=== PATIENT | female | born 1935 | race Caucasian/White ===

== ENCOUNTER 2019-06-22 10:36 | Emergency (ER) | payer MEDICARE, OTHER ==
[~2019-06-22] VITALS: Ht 165.1 cm; Wt 81.8 kg
--- NOTE | 2019-06-22 10:54 | ED Head Injury ---
General Stated Complaint: FALL; HEAD INJ Source: patient, other (friend) History of Present Illness Date Seen by Provider: Jun 22, 2019 Time Seen by Provider: 10:41 Initial Comments 84-year-old female presenting with friend after having a fall at 6:30 AM today. She had tripped over her flip flops and fell face forward hitting her forehead. She denies having loss of consciousness. She does have injury to her right forehead that was bleeding. The bleeding is controlled at this time. She denies having headache or any change in her vision. She has no nausea or vomiting. She denies any other injuries. She has no pain in her neck or back. Allergies and Home Medications Allergies Coded Allergies: No Known Drug Allergies (Unverified , 06/22/19) Patient Home Medication List Home Medication List Reviewed: Yes Review of Systems Review of Systems Constitutional: no symptoms reported Eyes: Denies Blurred Vision, Denies Drainage, Denies Decreased Acuity, Denies Photophobia, Denies Vision Changes Ears, Nose, Mouth, Throat: see HPI; denies ear discharge, denies nose discharge, denies epistaxis, denies loose teeth Respiratory: no symptoms reported Cardiovascular: no symptoms reported Gastrointestinal: No nausea, No vomiting Genitourinary: No dysuria Musculoskeletal: no symptoms reported Skin: see HPI (bruising and swelling to right side of face with laceration to right forehead) Psychiatric/Neurological: See HPI (No loss of consciousness); Denies Headache Past Gfwppbi-Rmiweq-Sepkwv Hx Past Med/Social Hx: Reviewed Nursing Past Med/Soc Hx Patient Social History Recent Foreign Travel: No Physical Exam Vital Signs Vital Signs - First Documented 06/22/19 10:45 Temp 36.1 Pulse 78 Resp 16 B/P (MAP) 148/84 (105) Pulse Ox 95 Capillary Refill : Height, Weight, BMI Height: '" Weight: lbs. oz. kg; BMI Method: General Appearance: WD/WN, no apparent distress HEENT: PERRL/EOMI, TMs normal (no hemotympanum), pharynx normal; No photophobia; other (contusion with laceration to right side of face and forehea d) Neck: non-tender, supple Cardiovascular: normal peripheral pulses, regular rate, rhythm Respiratory: chest non-tender, lungs clear, normal breath sounds Gastrointestinal: non tender, soft, no pulsatile mass Extremities: normal range of motion, non-tender, normal capillary refill Psychiatric: alert, oriented x 3 Crainal Nerves: normal speech, PERRL Coordination/Gait: normal gait Skin: warm/dry, ecchymosis (right side of face), other (laceration to right forehead) Procedures/Interventions Wound Location: Face (right forehead) Wound Length (cm): 2.7 Wound's Depth, Shape: sub Q Wound Explored: clean Anesthesia: Lidocaine w/ Epi Volume Anesthetic (ccs): 9 Suture: Prolene Suture Size: 5-0 Number of Sutures: 7 Layer Closure?: 1 Progress After obtaining verbal consent the wound was anesthetized with 1% lidocaine with epinephrine. Then the central portion of the wound was debrided to remove the majority of the blood clot that was present. This was cleaned with chlorhexidine and sterile saline. Then 5-0 Prolene was used to approximate the wound edges with a total of 7 simple interrupted stitches. The patient tolerated this well without any immediate complications. Wound was dressed with antibiotic ointment. Counseled on follow-up and return precautions. Advised to have the stitches rem carlos in approximately 5-7 days. Progress/Results/Core Measures Results/Orders My Orders Orders - DARRIAN ASIF MD Ct Head Wo (06/22/19 10:52) Lidocaine/Epi Mpf 2% 1:200,000 (Xylocain (06/22/19 12:40) Suture Set At Bedside (06/22/19 12:40) Lidocaine/Epi 2% 1:100,000 (Xylocaine/Ep (06/22/19 12:45) Lidocaine/Epi 2% 1:100,000 (Xylocaine/Ep (06/22/19 12:43) Vital Signs/I&O 06/22/19 13:38 Pulse 74 Resp 14 B/P (MAP) 138/57 Pulse Ox 96 Progress Progress Note #1: Progress Note Obtain CT of the head to evaluate for intracranial hemorrhage or fracture. Patient states that her tetanus was updated in March when she last had a fall. Progress Note #2: Progress Note CT scan does not show any acute fracture or intracranial hemorrhage. The laceration on her right forehead had a large clot that was removed after anesthetizing the wound. Then the wound edges were approximated using 5-0 Prolene. Counseled on care of the wound and follow-up and return precautions. Recommend suture removal in 5-7 days. Diagnostic Imaging Diagonstic Imaging: CT Plain Films/CT/US/NM/MRI: head Comments NAME: ABRAHAM PINEDA [facility] REC#: [id number] PT STATUS: REG ER : 1935 PHYSICIAN: DARRIAN ASIF MD ADMIT DATE: 06/22/19/ER FS Draft POSDate of Exam:06/22/19 CT HEAD WO PROCEDURE: CT head without contrast. TECHNIQUE: Multiple contiguous axial images were obtained through the brain without the use of intravenous contrast. Auto Exposure Controls were utilized during the CT exam to meet ALARA standards for radiation dose reduction. INDICATION: Fall, lacerations supraorbital on the right. COMPARISON: No priors. FINDINGS: Periorbital and supraorbital soft tissue injury and swelling on the right present. The anterior and posterior norwood of the frontal sinuses are intact. No postseptal or retrobulbar hematoma. No paranasal sinus air-fluid level. The mastoids are clear. There is no calvarial fracture deformity. There is no hemorrhage, hydrocephalus, edema, mass, mass effect, or evidence for elevated intracerebral pressures. There are no abnormal extra-axial fluid collections. IMPRESSION: Periorbital soft tissue swelling on the right. No hemosinus, fracture deformity, or acute intracerebral pathology identified. Dictated on workstation # [id number] Dict: 06/22/19 1106 Trans: 06/22/19 1110 [id number] Interpreted by: YIN STODDARD Electronically signed by: Departure Impression Primary Impression: Laceration of forehead without complication Qualified Codes: S01.81XA - Laceration without foreign body of other part of head, initial encounter Additional Impressions: Fall at home Qualified Codes: W19.XXXA - Unspecified fall, initial encounter; Y92.009 - Unspecified place in unspecified non-institutional (private) residence as the place of occurrence of the external cause Facial hematoma Qualified Codes: S00.83XA - Contusion of other part of head, initial encounter Disposition: 01 HOME, SELF-CARE Condition: Stable Departure-Patient Inst. Decision time for Depature: 13:26 Referrals: JAMAL GOODMAN MD (PCP/Family) Primary Care Physician Patient Instructions: Laceration Repair With Liliana (DC), Preventing Falls in the Older Adult, Minor Head Injury (DC), Wound Care Add. Discharge Instructions: Keep wound clean and dry for the first 24 hours. After that you may wash with soap and water and apply antibiotic ointment 2-3 times a day as needed. The stitches should be removed in 5-7 days with your primary provider. Be seen sooner or seek medical care if you have concerns for infection such as increasing redness, fever over 101 Fahrenheit or purulent drainage from the wound Try to sleep with your head elevated for the next few days to help limit the swelling and bruising. Apply ice 15-20 minutes every few hours to help with swelling and bruising. DARRIAN ASIF MD Jun 22, 2019 10:54 POS
--- NOTE | 2019-06-22 11:11 | Diagnostic Imaging Report ---
PROCEDURE: CT head without contrast. TECHNIQUE: Multiple contiguous axial images were obtained through the brain without the use of intravenous contrast. Auto Exposure Controls were utilized during the CT exam to meet ALARA standards for radiation dose reduction. INDICATION: Fall, lacerations supraorbital on the right. COMPARISON: No priors. FINDINGS: Periorbital and supraorbital soft tissue injury and swelling on the right present. The anterior and posterior norwood of the frontal sinuses are intact. No postseptal or retrobulbar hematoma. No paranasal sinus air-fluid level. The mastoids are clear. There is no calvarial fracture deformity. There is no hemorrhage, hydrocephalus, edema, mass, mass effect, or evidence for elevated intracerebral pressures. There are no abnormal extra-axial fluid collections. IMPRESSION: Periorbital soft tissue swelling on the right. No hemosinus, fracture deformity, or acute intracerebral pathology identified. Dictated by: Dictated on workstation # [id number]
[2019-06-22] MEDS ORDERED: LIDOCAINE/EPI 2% 1:200,00 (XYLOCAINE) 10 ML VIAL INJ STA (12:40)
[2019-06-22] MEDS ORDERED: LIDOCAINE/EPI 2% 1:100,00 (XYLOCAINE) 20 ML VIAL ONE (12:43)
[2019-06-22] MEDS ORDERED: LIDOCAINE/EPI 2% 1:100,00 (XYLOCAINE) 20 ML VIAL INJ STA (12:45)
[2019-06-22 13:38] VITALS: BP 138/57
== END 2019-06-22 13:38 | disposition home or self-care (01) ==
LOC: EDUNIT# 10:36 → ER FS 10:38
DX: S01.81XA Laceration without foreign body of other part of head, initial encounter (principal); W01.10XA Fall on same level from slipping, tripping and stumbling with subsequent striking against unspecified object, initial encounter; Y92.009 Unspecified place in unspecified non-institutional (private) residence as the place of occurrence of the external cause
CPT/HCPCS: 70450